=== PATIENT | male | born 1960 | race Caucasian/White ===

== ENCOUNTER 2017-10-25 13:03 | Emergency (ER) | payer MEDICAID, OTHER ==
[~2017-10-25 13:03] MED LIST: IBUP600T26 PO
[2017-10-25 13:25] VITALS: BP 142/83; PULSE 116; RESP 20; TEMP 98.3; O2SAT 98
--- NOTE | 2017-10-25 14:24 | RADRPT ---
EXAM DATE/TIME: 10/25/2017 13:43 [place] COMPARISON: None. INDICATIONS : <<Foreign body. Patient states he was bitten by a dog while cutting his grass. Patient has several la cerations.>> MEDICAL HISTORY : None. SURGICAL HISTORY : H/O broken left tibia x 2. ENCOUNTER: Initial ACUITY: 1 day PAIN SCORE: 8/10 LOCATION: Left lower leg. FINDINGS: Two view examination of the left tibia demonstrates faint radiopaque densities near the area of repor beth dogbite. His previous tibial and fibular fracture with multiple screw fixation is. Moderate osteo arthritis at the knee and ankle joints. CONCLUSION: 1. Faint radiopaque densities in the soft tissues of the left calf near the reported dogbite. Everton Elias MD on October 25, 2017 at 14:20 Board Certified Radiologist. This report was verified electronically.
[2017-10-25] MEDS ORDERED: AMOXICILLIN/CLAVULANATE K 875 MG TAB PO ONE (14:45)
--- NOTE | 2017-10-25 14:49 | PD ---
HPI Chief Complaint: Bite or Sting Time Seen by Provider: 14:40 Travel History International Travel<30 days: No Contact w/Intl Traveler<30days: No Traveled to known affect area: No History of Present Illness HPI 57-year-old male here with dog bite to the left calf. He reports while mowing the lawn and neighbor's dog ran up and bit him in the calf at 10 AM. He reports the dog is known to him and up-to-date on his immunizations. The dog has since been taken into custody by animal control. He denies paresthesia or weakness in the extremity. He reports pain at the site of the puncture wounds. Symptom severity is moderate. No aggravating or alleviating factors. 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 Bleeding is well-controlled. HEAD: Normocephalic. EYES: No injection or drainage. NECK: Supple CARDIOVASCULAR: Regular rate and rhythm RESPIRATORY: Breath sounds equal bilaterally. No accessory muscle use MUSCULOSKELETAL: No cyanosis, or edema. Left lower extremity: 5 puncture wounds /lacerations to the left calf with bleeding well-controlled. Wound edges are well approximated. Each puncture wound/laceration measures less than 1 cm. The compartments of the calf are soft. Normal sensation. 2+ DP pulse. Brisk cap refill. Data Data Last Documented VS Vital Signs Date Time Temp Pulse Resp B/P (MAP) Pulse Ox O2 Delivery O2 Flow Rate FiO2 10/25/17 13:25 98.3 116 20 142/83 (102) 98 Orders Orders Tibia/Fibula (Ap/Lat) (10/25/17 ) Amoxicil-Clavulanate (Augmentin) (10/25/17 14:45) MDM Medical Decision Making Medical Screen Exam Complete: Yes Emergency Medical Condition: Yes Differential Diagnosis Puncture wound, animal bite, laceration, subcutaneous retained foreign body Narrative Course This is a 57-year-old male with multiple puncture wounds to the left calf. The extremity is neurovascularly intact. All wound edges are well approximated. Patient is requesting to leave immediately upon x-ray. After lengthy conversation he agreed to allow me to cleanse the Wounds by extensively irrigating them. Visual examination by myself as not reveal any retained foreign bodies. X-ray showed a faint radiopaque subcutaneous foreign body possibly near the puncture wound, this object could not be found by myself during visual inspection. Patient was placed on antibiotics. I offered to call and schedule an appointment on outpatient basis with general surgeon for follow-up and possible remover of foreign bodies and he refused. He is requesting to be discharged at this time and will schedule his own follow-up appointment. Given infection was discussed. He is instructed to follow-up with primary care for recheck of the wounds in 1-2 days. He is also referred to general surgery for evaluation of retained foreign body. Strict return precautions were discussed. The importance of antibiotic compliance and wound care was stressed to the patient. He verbalizes understanding and agrees to plan Procedures Procedure Narrative All puncture wounds were extensively irrigated and locally explored. No foreign body identified. Diagnosis Primary Impression: Dog bite Qualified Codes: W54.0XXA - Bitten by dog, initial encounter Additional Impression: Foreign body in subcutaneous tissue Referrals: Herbert Bob MD Primary Care Physician Additional Instructions: Cleanse the area daily with soap and water. Apply clean dry dressings daily. Take the antibiotics as directed. Pain medication as needed. Follow up for recheck in 2 days with your doctor. Scripts Amoxicillin-Clavulanate (Augmentin) 875-125 Mg Tab 1 TAB PO BID for Infection, #20 TAB 0 Refills Prov: Ana Alfredo 10/25/17 Disposition: 01 DISCHARGE HOME Condition: Stable Ana Alfredo Oct 25, 2017 14:49
[2017-10-25] MEDS ORDERED: AUGM875T3 PO (14:56)
== END 2017-10-25 15:15 | disposition home or self-care (01) ==
LOC: NEPK 13:03
DX: S81.832A Puncture wound without foreign body, left lower leg, initial encounter (principal); M79.5 Residual foreign body in soft tissue; F17.210 Nicotine dependence, cigarettes, uncomplicated; F12.90 Cannabis use, unspecified, uncomplicated; W54.0XXA Bitten by dog, initial encounter; Y93.H9 Activity, other involving exterior property and land maintenance, building and construction; Y92.007 Garden or yard of unspecified non-institutional (private) residence as the place of occurrence of the external cause
CPT/HCPCS: 73590; 99283